=== PATIENT | male | born 1975 | race Two or more races ===

== ENCOUNTER 2019-10-21 00:50 | Emergency (ER) | payer OTHER ==
[~2019-10-21] VITALS: Ht 185.4 cm; Wt 96.2 kg
[2019-10-21 00:54] VITALS: BP 142/82
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
[2019-10-21] MEDS ORDERED: IBUPROFEN 400 MG TABLET ONE (01:15)
--- NOTE | 2019-10-21 01:24 | NUR ---
Patient discharged to PD in stable condition. Written and verbal after care instructions given. Patient verbalizes understanding of instruction. Pt ambulatory w steady gait
[2019-10-21] MEDS ORDERED: IBUPROFEN 400 MG TABLET PO ONE (01:30)
== END 2019-10-21 01:25 | disposition home or self-care (01) ==
LOC: ER 00:50
DX: M54.6 Pain in thoracic spine (principal); F31.9 Bipolar disorder, unspecified; Z88.6 Allergy status to analgesic agent